=== PATIENT | male | born 1960 | race Caucasian/White ===

== ENCOUNTER 2023-01-30 15:58 | Emergency (ER) | payer BC, MEDICARE ==
[2023-01-30] MEDS ORDERED: 50% Dextrose in Water 50 ML Syringe IVPUSH ONE (16:18)
[2023-01-30] MEDS ORDERED: Sodium Chloride 0.9% 500 ML IV ONE (16:18)
[2023-01-30] MEDS ORDERED: Sodium Chloride 0.9% 10 ML Syringe FLUSH PRN (16:20)
[2023-01-30 16:41] LABS: ESTIMATED GFR 53 mL/min (>60)
[2023-01-30 17:33] VITALS: BP 151/105; PULSE 64
== END 2023-01-30 19:28 | disposition home or self-care (01) ==
LOC: FB.ED 15:58
DX: T68.XXXA Hypothermia, initial encounter (principal); S05.01XA Injury of conjunctiva and corneal abrasion without foreign body, right eye, initial encounter; S05.02XA Injury of conjunctiva and corneal abrasion without foreign body, left eye, initial encounter; E78.00 Pure hypercholesterolemia, unspecified; I10 Essential (primary) hypertension; E11.9 Type 2 diabetes mellitus without complications; Z79.4 Long term (current) use of insulin; Z79.82 Long term (current) use of aspirin; Z79.899 Other long term (current) drug therapy; W00.0XXA Fall on same level due to ice and snow, initial encounter
CPT/HCPCS: 36410; 36415; 70450; 72125; 80053; 82947; 83735; 84484; 85025; 93005; 96360; 99285-25; J7040